=== PATIENT | female | born 1995 | race Two or more races ===

== ENCOUNTER 2016-08-19 20:51 | Emergency (ER) | payer MEDICAID ==
[2016-08-19] MEDS ORDERED: Sodium Chloride 0.9% 1,000 ML IV ONE (21:40)
[2016-08-19] MEDS ORDERED: Acetaminophen 500 MG Tab PO ONE (21:41)
[2016-08-19] MEDS ORDERED: Metoclopramide 10 MG/2 ML SDV IVPUSH ONE (21:41)
[2016-08-19] MEDS ORDERED: HYDROmorphone 2 MG/ML SDV IVPUSH ONE (22:29)
[2016-08-19] MEDS ORDERED: Acetaminophen/HYDROcodone 325-5 MG Tab PO ONE (23:13)
[2016-08-19 23:27] VITALS: BP 109/67
--- NOTE | 2016-08-23 16:47 | ER ---
DATE SEEN: 08/19/2016 TIME SEEN: 2115 hours. HISTORY OF PRESENT ILLNESS: This 18 weeks gestation woman, 1, para 0-0-0-0, notes 3 days of headache with mild light and sound sensitivity and occasional blurring of vision. The patient has been "heavy". Denies retro- orbital pain or head trauma, smoking, drug use, excessive exercise or energy. She denies hypertension. She is on vitamins. She has associated mild finger numbness of both hands. No history of abuse or other abuse. ALLERGIES: None. PAST MEDICAL HISTORY: Negative. No asthma, diabetes, heart disease, high blood pressure, other serious illnesses, hospitalizations, or surgeries. REVIEW OF SYSTEMS: Negative except for as noted in the HPI. PHYSICAL EXAMINATION: VITAL SIGNS: Blood pressure 113/64, heart rate 88, respirations 18, oxygen saturation 97%, temperature is 36.9 degrees centigrade. GENERAL: Alert woman, in no acute distress. Well-muscled and well-nourished. She has mild to moderate headache. Notes headache is 8 in intensity. HEENT: PERRLA intact. Eyegrounds normal appearance. No mild blepharospasm. TMs negative. Pharynx without abnormality. Gag is in place. Uvula midline. Tongue is midline. Tongue strength is good. NECK: No bruits. No thyromegaly or masses in neck. No cervical adenopathy. LUNGS: Clear to auscultation without rales, rhonchi, or wheezes. HEART: S1, S2. No murmur. ABDOMEN: Soft. No abdominal discomfort noted. heart tones 156 to 154. No abdominal tenderness. No CVA percussion tenderness. EXTREMITIES: Without edema. NEURO: Deep tendon reflexes upper and lower extremities symmetrical, 1+ normoactive. Cranial nerves 2 through 12 intact. No pronator drift. No dysmetria on finger-nose test. Muscle strength is intact in upper and lower extremities. ASSESSMENT: Headache, 12-week . There is some migraine component with slight sensitivity to light and sound, but some occasional blurring of vision. PLAN: Up To Date resource suggests Reglan is a good medication to use, also intravenous Tylenol can be used, however, there is rare potential side effect with this. The patient received 1000 mL normal saline plus 10 mg of Reglan IV. Headache did not relent. It still was 8. Consequently, given a dose of Dilaudid 1 mg IV. Headache went down to 3. The patient tolerated this well and also did not have any nausea. The patient dismissed to use of 1000 mg of Tylenol - no ibuprofen - every 4 hours p.r.n. headache. No more than 4000 per day. The patient received 500 mg acetaminophen in the hospital, did not make a difference in her headache. Advised also to drink two quarts of water a day and rest. Follow up with doctor in 5 to 7 days or earlier if worse. /[id number]
== END 2016-08-19 23:20 | disposition home or self-care (01) ==
LOC: FB.ED 20:51
DX: O99.351 Diseases of the nervous system complicating pregnancy, first trimester (principal); G43.909 Migraine, unspecified, not intractable, without status migrainosus; Z3A.12 12 weeks gestation of pregnancy
CPT/HCPCS: 96361; 96374; 96375; 99283; A9270; J1170; J2765; J7040